=== PATIENT | male | born 1970 | race Caucasian/White ===

== ENCOUNTER 2020-08-26 02:00 | Emergency (ER) | payer OTHER ==
[~2020-08-26] VITALS: Ht 162.6 cm; Wt 66.0 kg
[2020-08-26] MEDS ORDERED: KETOROLAC 30MG/ML VIAL IM ONE (04:30)
[2020-08-26 04:39] VITALS: BP 125/79
[2020-08-26] MEDS ORDERED: IBUP-2029 MT (04:39)
== END 2020-08-26 04:15 | disposition home or self-care (01) ==
LOC: ER 02:00
DX: S62.396A Other fracture of fifth metacarpal bone, right hand, initial encounter for closed fracture (principal); W22.8XXA Striking against or struck by other objects, initial encounter; R03.0 Elevated blood-pressure reading, without diagnosis of hypertension; Y93.89 Activity, other specified; Y92.89 Other specified places as the place of occurrence of the external cause
CPT/HCPCS: 29125; 73110; 73130; 96372; 99284; J1885